=== PATIENT | female | born 1980 | race Caucasian/White ===

== ENCOUNTER 2022-11-03 10:26 | Outpatient (CLI) | payer BC | END 2022-11-03 10:27 | disposition home or self-care (01) | LOC: CSHMRI 10:26 | PROVIDERS: ATTEND Specialist | DX: M51.17 Intervertebral disc disorders with radiculopathy, lumbosacral region (principal); M47.816 Spondylosis without myelopathy or radiculopathy, lumbar region | CPT/HCPCS: 72148 ==

== ENCOUNTER 2023-06-01 07:51 | Outpatient (CLI) | payer BC | END 2023-06-01 07:52 | disposition home or self-care (01) | LOC: CSHULT 07:51 | PROVIDERS: ATTEND Obstetrics & Gynecology | DX: N63.10 Unspecified lump in the right breast, unspecified quadrant (principal) ==